=== PATIENT | male | born 1995 | race Two or more races ===

== ENCOUNTER 2018-09-20 20:14 | Emergency (ER) | payer BC ==
[2018-09-20] MEDS ORDERED: NS 0.9% 1000 ML* 1,000 ML IV ONE (22:38)
[2018-09-20] MEDS ORDERED: Ketorolac INJ* 30 MG/ML 1 ML VIAL IV PUSH ONE (22:38)
[2018-09-20] MEDS ORDERED: Metoclopramide IV* 5 MG/ML 2 ML VIAL IV SLOW PU ONE (22:39)
[2018-09-20] MEDS ORDERED: diPHENhydraMINE PO* 50 MG PO ONE (22:39)
--- NOTE | 2018-09-20 22:42 | ED ---
Headache - HPI Summary HPI Summary: This patient is a 22 year old M presenting to ED with a chief complaint of R- sided RENDON since 4 days ago. The CC is described as sharp intermittently and pressure constantly but waxing and waning. There is also tingling and numbness of the R side of the face. The patient rates the pain 6/10 in severity. Symptoms aggravated by nothing. Symptoms alleviated by nothing. Took 1 ibuprofen today. Patient reports nausea, subjective fever, and blurred vision. Patient denies vomiting and photophobia. - History Of Current Complaint Chief Complaint: EDHeadache Stated Complaint: HEAD PAIN Time Seen by Provider: 09/20/18 22:26 Hx Obtained From: Patient Onset/Duration: Sudden Onset, Started days ago - 4 days ago, Still Present Currently Pain Is: Current Pain Scale(0-10)= - 6, Moderate Timing: Intermittent, Lasting: Character: Sharp, Pressure Location of Headache: Other: - R-sided Aggravating Factor: Nothing Allevating Factors: Nothing - took 1 ibuprofen today Associated Signs And Symptoms: Nausea, Other (Noted In Comments) - blurred vision - Allergies/Home Medications Allergies/Adverse Reactions: Allergies Allergy/AdvReac Type Severity Reaction Status Date / Time No Known Allergies Allergy Verified 09/20/18 20:38 Home Medications: Home Medications NK [No Home Medications Reported] 09/20/18 [History Confirmed 09/20/18] PMH/Surg Hx/FS Hx/Imm Hx Infectious Disease History: No Infectious Disease History: Denies: Traveled Outside the [place] in Last 30 Days - Social History Alcohol Use: unknown Substance Use Type: Reports: Other Smoking Status (MU): Never Smoked Tobacco Review of Systems Positive: Fever - subjective Positive: Blurred Vision. Negative: Photophobia Positive: Nausea. Negative: Vomiting Positive: Headache - R-sided, Numbness - and tingling on R side of his face All Other Systems Reviewed And Are Negative: Yes Physical Exam - Summary Physical Exam Summary: VITAL SIGNS: Reviewed. GENERAL: Patient is a well-developed and nourished MALE who is lying comfortable in the stretcher. Patient is not in any acute respiratory distress. HEAD AND FACE: No signs of trauma. No ecchymosis, hematomas or skull depressions. No sinus tenderness. EYES: PERRLA, EOMI x 2, No injected conjunctiva, no nystagmus. EARS: Hearing grossly intact. Ear canals and tympanic membranes are within normal limits. MOUTH: Oropharynx within normal limits. NECK: Supple, trachea is midline, no adenopathy, no JVD, no carotid bruit, no c- spine tenderness, neck with full ROM. CHEST: Symmetric, no tenderness at palpation LUNGS: Clear to auscultation bilaterally. No wheezing or crackles. CVS: Regular rate and rhythm, S1 and S2 present, no murmurs or gallops appreciated. ABDOMEN: Soft, non-tender. No signs of distention. No rebound no guarding, and no masses palpated. Bowel sounds are normal. EXTREMITIES: FROM in all major joints, no edema, no cyanosis or clubbing. NEURO: Alert and oriented x 3. No acute neurological deficits. Speech is normal and follows commands. SKIN: Dry and warm Triage Information Reviewed: Yes Vital Signs On Initial Exam: Initial Vitals Temp Pulse Resp BP Pulse Ox 98.8 F 84 16 129/63 100 09/20/18 20:35 09/20/18 20:35 09/20/18 20:35 09/20/18 20:35 09/20/18 20:35 Vital Signs Reviewed: Yes Diagnostics - Vital Signs Vital Signs Temp Pulse Resp BP Pulse Ox 09/20/18 20:35 98.8 F 84 16 129/63 100 - Laboratory Result Diagrams: 09/20/18 22:45 09/20/18 22:45 Lab Statement: Any lab studies that have been ordered have been reviewed, and results considered in the medical decision making process. - CT Brain CT CT Interpretation Completed By: Radiologist Summary of CT Findings: No acute intracranial abnormality. ED physician has reviewed this radiology report. Re-Evaluation - Re-Evaluation First Eval Re-Evaluation Time: 00:42 Change: Improved Comment: Patient is feeling better. Discussed plan for discharge and patient understands and agrees. Headache Course/Dx - Course Assessment/Plan: This patient is a 22 year old M presenting to ED with a chief complaint of R-sided RENDON since 4 days ago. In the ED course, the patient was given Toradol, Reglan, Benadryl, and fluids. Brain CT reveals no acute intracranial abnormality. The patient is feeling better in the ED. He will be discharged with dx of a headache, most likely migraine. - Diagnoses Provider Diagnoses: Headache Discharge - Sign-Out/Discharge Documenting (check all that apply): Patient Departure - discharge - Discharge Plan Condition: Stable Disposition: HOME Patient Education Materials: Migraine Headache (ED), Acute Headache (ED) Referrals: Mark Holland NP [Primary Care Provider] - (Follow up in 1-2 days.) Additional Instructions: RETURN TO THE EMERGENCY DEPARTMENT FOR CHANGING OR WORSENING SYMPTOMS. FOLLOW UP WITH PCP IN 1-2 DAYS. - Attestation Statements Document Initiated by Scribe: Yes Documenting Scribe: Sergey Ramsay Provider For Whom Scribe is Documenting (Include Credential): Lindsey Lynn MD Scribe Attestation: Sergey Hunter, scribed for Lindsey Lynn MD on 09/21/18 at 0046.
[2018-09-20 22:53] LABS: ABS Basophils 0 10^3/ul (0-0.2); ABS Eosinophils 0.1 10^3/ul (0-0.6); ABS Lymphocytes 3.1 10^3/ul (1.0-4.8); ABS Monocytes 0.6 10^3/ul (0-0.8); ABS Neutrophils 3.2 10^3/ul (1.5-7.7); ABS Nucleated RBC 0 10^3/ul; Eosinophil % 0.9 %; Hematocrit 45 % (42-52); Hemoglobin 15.7 g/dl (14.0-18.0); Lymphocyte % 44.8 %; Mean Corpuscular HGB Conc 35 g/dl (31-36); Mean Corpuscular Hemoglobin 29 pg (27-31); Mean Corpuscular Volume 85 fL (80-94); Mean Platelet Volume 6.8 fL (7.4-10.4); Nucleated Red Blood Cells % 0.1; Platelet Count 229 10^3/ul (150-450); Red Blood Count 5.34 10^6/ul (4.00-5.40); Red Cell Distribution Width 13 % (10.5-15)
[2018-09-20 23:01] LABS: INR 1.15 (0.77-1.02)
[2018-09-20 23:09] LABS: EGFR Non-African American 73.6 (>60)
[2018-09-21 02:18] VITALS: BP 114/68
== END 2018-09-21 01:16 | disposition home or self-care (01) ==
LOC: ED 20:14
DX: R51 Headache (principal); R20.0 Anesthesia of skin; R11.0 Nausea; H53.8 Other visual disturbances
CPT/HCPCS: 36415; 70450; 80053; 85025; 85610; 85730; 86140; 96374; 96375; 99283; A9270-GY; J1885; J2765

== ENCOUNTER 2018-12-04 16:59 | Emergency (ER) | payer BC ==
[2018-12-04] MEDS ORDERED: NS 0.9% 1000 ML** 1,000 ML IV ONE (17:49)
[2018-12-04] MEDS ORDERED: Ketorolac INJ* 30 MG/ML 1 ML VIAL IV PUSH ONE (17:49)
[2018-12-04 18:51] LABS: ABS Basophils 0 10^3/ul (0-0.2); ABS Eosinophils 0.1 10^3/ul (0-0.6); ABS Lymphocytes 1.2 10^3/ul (1.0-4.8); ABS Monocytes 0.8 10^3/ul (0-0.8); ABS Neutrophils 11.9 10^3/ul (1.5-7.7); ABS Nucleated RBC 0 10^3/ul; Eosinophil % 0.5 %; Hematocrit 42 % (42-52); Hemoglobin 14.2 g/dl (14.0-18.0); Lymphocyte % 8.5 %; Mean Corpuscular HGB Conc 34 g/dl (31-36); Mean Corpuscular Hemoglobin 29 pg (27-31); Mean Corpuscular Volume 85 fL (80-94); Mean Platelet Volume 6.9 fL (7.4-10.4); Nucleated Red Blood Cells % 0; Platelet Count 235 10^3/ul (150-450); Red Blood Count 4.92 10^6/ul (4.00-5.40); Red Cell Distribution Width 13 % (10.5-15); White Blood Count 14.1 10^3/ul (3.5-10.8)
[2018-12-04 18:53] LABS: Urine Appearance Clear; Urine Bacteria Absent (Absent); Urine Bilirubin Negative (Negative); Urine Blood 1+ (Negative); Urine Color Yellow; Urine Glucose Negative (Negative); Urine Ketones Negative (Negative); Urine Nitrite Negative (Negative); Urine Protein Negative (Negative); Urine Red Blood Cell 2+(6-10/hpf) (Absent); Urine Specific Gravity 1.012 (1.010-1.030); Urine Urobilinogen Negative (Negative); Urine White Blood Cell Trace(0-5/hpf) (Absent)
[2018-12-04 19:09] LABS: Albumin 4.4 g/dL (3.2-5.2); Albumin/Globulin Ratio 1.5 (1-3); BUN/Creatinine Ratio 23.6 (8-20); C Reactive Protein 2.56 mg/L (<8.01); Calcium 9.2 mg/dL (8.6-10.3); EGFR African American 103.9 (>60); EGFR Non-African American 85.8 (>60); Globulin 2.9 g/dL (2-4); Potassium 3.9 mmol/L (3.5-5.0); Total Bilirubin 1.4 mg/dL (0.2-1.0); Total Protein 7.3 g/dL (6.4-8.9)
[2018-12-04] MEDS ORDERED: Iohexol 300* (CONTRAST) 10 ML SDV IV ONE (19:24)
[2018-12-04] MEDS ORDERED: Morphine VIAL* 10 MG/ML 1 ML VIAL IV ONE (19:37)
--- NOTE | 2018-12-04 20:10 | ED ---
GI/ HPI - HPI Summary HPI Summary: 23-year-old male presents with acute abdominal pain for the past couple hours. He state start in his right flank and radiates to his right upper quadrant. He states that it causes some chest pain. States the pain has come down now. Denies any nausea or vomiting. No diarrhea or constipation. No urinary symptoms. States had his gallbladder out 2 weeks ago and has been having intermittent pain in his right upper quadrant since. Has never been this intense. It was elective surgery done at [facility] due to decreased function on a HIDA scan. Has no medical conditions. 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 Wu is due to be removed tomorrow. - History of Current Complaint Chief Complaint: EDAbdPain Time Seen by Provider: 12/04/18 17:44 Stated Complaint: BACK PAIN Pain Intensity: 6 - Allergy/Home Medications Allergies/Adverse Reactions: Allergies Allergy/AdvReac Type Severity Reaction Status Date / Time No Known Allergies Allergy Verified 09/20/18 20:38 PMH/Surg Hx/FS Hx/Imm Hx Endocrine/Hematology History: Denies: Hx Diabetes Cardiovascular History: Denies: Hx Hypertension History: Denies: Hx Renal Disease - Surgical History Surgery Procedure, Year, and Place: CHOLECYSTECTOMY 11/20/18 Infectious Disease History: No Infectious Disease History: Denies: Traveled Outside the [place] in Last 30 Days - Family History Known Family History: Positive: Non-Contributory - Social History Alcohol Use: None Substance Use Type: Reports: None Smoking Status (MU): Never Smoked Tobacco Review of Systems Negative: Fever Negative: Chest Pain Negative: Shortness Of Breath Positive: Abdominal Pain. Negative: Vomiting, Diarrhea, Nausea Positive: flank pain. Negative: dysuria All Other Systems Reviewed And Are Negative: Yes Physical Exam Triage Information Reviewed: Yes Vital Signs On Initial Exam: Initial Vitals Pulse Resp Pulse Ox 75 15 99 12/04/18 17:09 12/04/18 17:09 12/04/18 17:09 Vital Signs Reviewed: Yes Appearance: Positive: Well-Appearing Skin: Positive: Warm, Dry Head/Face: Positive: Normal Head/Face Inspection Eyes: Positive: Normal, Conjunctiva Clear ENT: Positive: Pharynx normal Respiratory/Lung Sounds: Positive: Clear to Auscultation, Breath Sounds Present Cardiovascular: Positive: Normal, RRR Abdomen Description: Positive: Soft, Other: - tenderness RUQ. Negative: CVA Tenderness (R), CVA Tenderness (L) Bowel Sounds: Positive: Present Musculoskeletal: Positive: Normal Neurological: Positive: Normal Psychiatric: Positive: Normal Diagnostics - Vital Signs Vital Signs Temp Pulse Resp BP Pulse Ox 12/04/18 19:12 99 16 132/72 96 12/04/18 19:00 89 21 98 12/04/18 18:41 88 18 147/84 96 12/04/18 18:10 80 15 120/56 99 12/04/18 18:00 72 16 99 12/04/18 17:40 72 12 138/69 100 12/04/18 17:12 98.1 F 76 16 118/59 99 12/04/18 17:10 83 17 118/59 99 12/04/18 17:09 75 15 99 - Laboratory Lab Results: Lab Results 12/04/18 12/04/18 12/04/18 Range/Units 18:39 18:40 18:40 WBC 14.1 H (3.5-10.8) 10^3/ul RBC 4.92 (4.00-5.40) 10^6/ul Hgb 14.2 (14.0-18.0) g/dl Hct 42 (42-52) % MCV 85 (80-94) fL MCH 29 (27-31) pg MCHC 34 (31-36) g/dl RDW 13 (10.5-15) % Plt Count 235 (150-450) 10^3/ul MPV 6.9 L (7.4-10.4) fL Neut % (Auto) 85.0 % Lymph % (Auto) 8.5 % [place] % (Auto) 5.7 % Eos % (Auto) 0.5 % Baso % (Auto) 0.3 % Absolute Neuts (auto) 11.9 H (1.5-7.7) 10^3/ul Absolute Lymphs (auto) 1.2 (1.0-4.8) 10^3/ul Absolute Monos (auto) 0.8 (0-0.8) 10^3/ul Absolute Eos (auto) 0.1 (0-0.6) 10^3/ul Absolute Basos (auto) 0 (0-0.2) 10^3/ul Absolute Nucleated RBC 0 10^3/ul Nucleated RBC % 0 Sodium 139 (135-145) mmol/L Potassium 3.9 (3.5-5.0) mmol/L Chloride 104 (101-111) mmol/L Carbon Dioxide 30 (22-32) mmol/L Anion Gap 5 (2-11) mmol/L BUN 25 H (6-24) mg/dL Creatinine 1.06 (0.67-1.17) mg/dL Est GFR ( Amer) 103.9 (>60) Est GFR (Non-Af Amer) 85.8 (>60) BUN/Creatinine Ratio 23.6 H (8-20) Glucose 119 H (70-100) mg/dL Calcium 9.2 (8.6-10.3) mg/dL Total Bilirubin 1.40 H (0.2-1.0) mg/dL AST 237 H (13-39) U/L ALT 147 H (7-52) U/L Alkaline Phosphatase 69 (34-104) U/L Troponin I 0.00 (<0.04) ng/mL C-Reactive Protein 2.56 (<8.01) mg/L Total Protein 7.3 (6.4-8.9) g/dL Albumin 4.4 (3.2-5.2) g/dL Globulin 2.9 (2-4) g/dL Albumin/Globulin Ratio 1.5 (1-3) Amylase 46 (29-103) U/L Lipase 22 (11.0-82.0) U/L Urine Color Yellow Urine Appearance Clear Urine pH 7.0 (5-9) Ur Specific [place] 1.012 (1.010-1.030) Urine Protein Negative (Negative) Urine Ketones Negative (Negative) Urine Blood 1+ A (Negative) Urine Nitrate Negative (Negative) Urine Bilirubin Negative (Negative) Urine Urobilinogen Negative (Negative) Ur Leukocyte Esterase Negative (Negative) Urine WBC (Auto) Trace(0-5/hpf) (Absent) Urine RBC (Auto) 2+(6-10/hpf) A (Absent) Urine Bacteria Absent (Absent) Urine Glucose Negative (Negative) Result Diagrams: 12/04/18 18:40 12/04/18 18:40 Lab Statement: Any lab studies that have been ordered have been reviewed, and results considered in the medical decision making process. - CT abd CT Interpretation Completed By: Radiologist Summary of CT Findings: IMPRESSION: 1. No acute intra-abdominal findings. 2. Surgical absence of the gallbladder without evidence of biliary ductal. dilatation. - EKG No standard instances Cardiac Rate: NL EKG Rhythm: Sinus Rhythm Summary of EKG Findings: sinus arrhythmia GIGU Course/Dx - Course Course Of Treatment: 23-year-old male presents with RUQ pain for the past couple hours. started in right flank. Denies any nausea or vomiting. No diarrhea or constipation. No urinary symptoms. States had his gallbladder out 2 weeks ago and has been having intermittent pain in his right upper quadrant since. 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 no fevers. on exam tenderness RUQ. no rebound. no CVA tenderness. wbc 14. crp normal. lfts elevated. ct shows no acute findings. renal u/s no acute findings. discussed case with dr christianson. discussed case with dr gonzalez who says will need hida scan but can follow up for such tomorrow morning. offered to call patient previous surgeon and patient declined. wants to be discharge to follow up with surgeon in [place]. sent home with pain medication. patient is stable with no fever so discharge. patient understand and agrees with plan. - Diagnoses Differential Diagnoses - Male: Gall Bladder Disease, Ureteral Calculi, Urinary Tract Infection Provider Diagnoses: Abdominal pain, Elevated liver enzymes Discharge - Sign-Out/Discharge Documenting (check all that apply): Patient Departure Patient Received Moderate/Deep Sedation with Procedure: No - Discharge Plan Condition: Good Disposition: HOME Referrals: Mark Holland NP [Primary Care Provider] - Shadi Gonzalez MD [Medical Doctor] - Additional Instructions: Follow up with surgery tomorrow take tyenlol or ibuprofen for pain every 6 hours as needed for pain, for severe pain use percocet every 4-6 hours Return to ED if develop fever or any new or worsening symptoms - Billing Disposition and Condition Condition: GOOD Disposition: Home
[2018-12-04 21:40] VITALS: BP 136/79
== END 2018-12-04 21:43 | disposition home or self-care (01) ==
LOC: ED 16:59
DX: R10.11 Right upper quadrant pain (principal); R79.89 Other specified abnormal findings of blood chemistry; R07.9 Chest pain, unspecified
CPT/HCPCS: 36415; 74177; 76775; 80053; 81003; 81015; 82150; 83690; 84484; 85025; 86140; 87086; 93005; 96361; 96374; 96375; 99283; J1885; J2270; Q9967

== ENCOUNTER 2019-02-21 11:30 | Emergency (ER) | payer BC ==
[2019-02-21 11:44] VITALS: BP 103/60
--- NOTE | 2019-02-21 12:00 | UC ---
Lower Extremity/Ankle HPI - HPI Summary HPI Summary: CHIEF COMPLAINT and HPI: This is a healthy 23-year-old male who suffered an inversion sprain to his left ankle playing basketball yesterday. He states that he previously had a fracture to this ankle as a child. He can walk but with discomfort. The pain is located primarily over the lateral malleolus and below it. The pain radiates into the foot and up the leg. There is no significant pain of the foot itself . VITAL SIGNS & SaO2 REVIEWED. Within normal limits unless noted here. NURSES NOTE REVIEWED."rolled left ankle last night, has continued to have pain since then able to bear weight " - History of Current Complaint Chief Complaint: UCLowerExtremity Stated Complaint: LEFT ANKLE INJURY Time Seen by Provider: 02/21/19 11:47 Pain Intensity: 6 - Allergies/Home Medications Allergies/Adverse Reactions: Allergies Allergy/AdvReac Type Severity Reaction Status Date / Time metoclopramide [From Reglan] AdvReac restlessnes Verified 02/21/19 11:44 s Home Medications: Home Medications NK [No Home Medications Reported] 02/21/19 [History Confirmed 02/21/19] PMH/Surg Hx/FS Hx/Imm Hx - Additional Past Medical History Additional PMH: PAST MEDICAL HISTORY- patient denies significant past medical history with the exception of a previous fracture through the growth plate of his left ankle. CHRONIC and RECURRENT HEALTH PROBLEM LIST REVIEWED. Information relevant to present complaint: Noncontributory VISIT HISTORY REVIEWED. MEDICATIONS & ALLERGIES REVIEWED. No antibiotic allergies HYPERTENSION STATUS: Within normal limits FAMILY HISTORY: Positive for: cardiovascular disease. I SOCIAL HISTORY: Patient is a nonsmoker, lives with his , and is a athletic trainer. Previously Healthy: Yes - Surgical History Surgical History: Yes Surgery Procedure, Year, and Place: CHOLECYSTECTOMY 11/20/18 - Family History Known Family History: Positive: Non-Contributory - Social History Alcohol Use: None Substance Use Type: None Smoking Status (MU): Never Smoked Tobacco Review of Systems All Other Systems Reviewed And Are Negative: Yes Constitutional: Positive: Negative Respiratory: Positive: Negative. Negative: Shortness Of Breath Cardiovascular: Positive: Negative. Negative: Palpitations Gastrointestinal: Positive: Negative. Negative: Abdominal Pain Motor: Positive: Other - Pain over the lateral aspect of the left ankle Is Patient Immunocompromised?: No Physical Exam - Summary Physical Exam Summary: Appearance: The patient is well-appearing, is in no pain or distress, and is well-nourished. Eyes: Conjunctiva are clear. Pupils are equal and reactive to light and accommodation. Extra ocular muscle movement is intact. ENT: The hearing is grossly normal, the pharynx is normal, and the TMs are normal. There is no muffled or hoarse voice. No stridor. Neck: The neck is supple and there is no lymphadenopathy. Respiratory: The chest is non-tender to palpation and without crepitus. The lungs are clear, there are normal breath sounds, and there is no respiratory distress. No wheezes, rales or rhonchi. Cardiovascular: Heart sounds reveal a regular rate and rhythm. There are no clicks, rubs or murmurs. There are no carotid bruits or thrills. Circulation is grossly intact. Abdomen: The abdomen is soft and nontender. There is no organomegaly. Bowel sounds are present and within normal limits. No point tenderness at McBurneys point. No CVA tenderness. Musculoskeletal: Strength is intact. The patient moves all extremities. Left ankle shows lateral swelling. Negative anterior drawer. No evident instability of the ankle. No tenderness over the fifth metatarsal. Neurological: The patient is alert. Motor and sensory are examination grossly intact. Speech is normal. Psychological: The patient displays age appropriate behavior, and is conversant. GCS=15. Skin: Negative for rashes. Triage Information Reviewed: Yes Vital Signs: Initial Vital Signs Temp 98.4 F 02/21/19 11:41 Pulse 69 02/21/19 11:41 Resp 16 02/21/19 11:41 BP 103/60 02/21/19 11:41 Pulse Ox 99 02/21/19 11:41 Vital Signs Reviewed: Yes Lower Extremity Course/Dx - Course Course Of Treatment: MEDICAL DECISION MAKING and PLAN: This is a healthy 23-year-old male who suffered an inversion sprain to his left ankle playing basketball yesterday. He states that he previously had a fracture to this ankle as a child. He can walk but with discomfort. The pain is located primarily over the lateral malleolus and below it. The pain radiates into the foot and up the leg. There is no significant pain of the foot itself . x ray of ankle and foot are negative. My dx is left ankle first degree sprain. MEDICATIONS REVIEWED. HYPERTENSION STATUS REVIEWED WITH PATIENT IF blood pressure is above 120/80. - Differential Dx/Diagnosis Differential Diagnosis/HQI/PQRI: Fracture (Closed), Sprain, Strain Provider Diagnosis: Ankle sprain Discharge - Sign-Out/Discharge Documenting (check all that apply): Patient Departure All imaging exams completed and their final reports reviewed: Yes - Discharge Plan Condition: Stable Disposition: HOME Patient Education Materials: Ankle Sprain (DC), Ankle Stirrup Splint (ED) Referrals: Mark Holland NP [Primary Care Provider] - Additional Instructions: WE DISCUSSED: PLEASE SEEK CARE AT THE EMERGENCY DEPARTMENT IF SYMPTOMS WORSEN OR IF NEW SYMPTOMS DEVELOP. FOLLOW UP WITH YOUR PRIMARY CARE PHYSICIAN IF CONDITION CONTINUES BEYOND 3 DAYS WITHOUT IMPROVEMENT. YOUR DIAGNOSIS IS: Left ankle sprain YOUR PRESCRIPTION RECOMMENDATION IS: Restrict activity until your pain free; gelcast, malou, crutches. Gradually increase weightbearing as you become more pain-free. Then stop using crutches. An pad more activity. If it starts to be painful. Restricted activity. Use warm moist heat in the morning. 2. The ankle and then ice to the area after weightbearing if it hurts. Also elevate. You can slowly passively move the ankle as it becomes less painful through the full range of motion. You can also do mild isometric exercises as you become more pain-free. FOR you can also do mild isometric exercises PAIN AND/OR SLEEP: For pain: Ibuprofen (Motrin and other brand names) 400-600mg PLUS acetaminophen (Tylenol and other brand names) 500mg - 1000mg every 8 hours. - Billing Disposition and Condition Condition: STABLE Disposition: Home
== END 2019-02-21 12:56 | disposition home or self-care (01) ==
LOC: UCEAST 11:30
DX: S93.402A Sprain of unspecified ligament of left ankle, initial encounter (principal); X50.1XXA Overexertion from prolonged static or awkward postures, initial encounter; Y93.67 Activity, basketball; Y92.310 Basketball court as the place of occurrence of the external cause; Z87.81 Personal history of (healed) traumatic fracture; Z88.8 Allergy status to other drugs, medicaments and biological substances
CPT/HCPCS: 99213; G0463